=== PATIENT | male | born 1995 | race Caucasian/White ===

== ENCOUNTER 2023-11-06 00:50 | Emergency (ER) | payer BC, SELFPAY ==
[2023-11-06 00:57] VITALS: BP 132/91; BMI 23.6
[2023-11-06] MEDS: ATIVAN 2 MG IM (01:01)
[2023-11-06] MEDS: HALDOL 5 MG IM (01:01)
[2023-11-06 01:33] LABS: % Basophils 0.3 % (0-2); % Eosinophils 0.1 % (0-6); % Immature Granulocytes 0.4 % (0-0.5); % Monocytes 9.3 % (1.7-9.3); % Neutrophils 68.9 % (42.2-75.2); Absolute Immature Granulocytes 0.1 10^3/uL (0-0.05); Absolute Lymphocytes 2.9 10^3/uL (1.2-3.4); Absolute Monocytes 1.3 10^3/uL (0.1-0.6); Absolute Neutrophils 9.6 10^3/uL (1.4-6.5); Hematocrit 40.2 % (39.0-52.0); Hemoglobin 14.6 g/dL (13.0-18.0); Mean Corp Hgb Conc. 36.3 g/dL (33.0-37.0); Mean Corpuscular Hgb 31.5 pg (27.0-31.0); Mean Corpuscular Volume 86.8 fL (80.0-94.0); Mean Platelet Volume 9.1 fL (7.4-10.4); Nucleated Red Blood Cells % 0 % (-); Platelet Count 319 10^3/uL (130-400); Red Blood Cell Count 4.63 10^6/uL (4.70-6.10); Red Cell Dist. Width 11.9 % (11.5-14.5); White Blood Cell Count 13.9 10^3/uL (4.8-10.8)
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
[2023-11-06 02:08] LABS: Marijuana Positive (Negative)
[2023-11-06 02:09] LABS: Amphetamines Negative (Negative); Barbiturates Negative (Negative); Benzodiazepines Negative (Negative); Buprenorphine Negative (Negative); Cocaine Negative (Negative); Methadone Negative (Negative); Methamphetamines Negative (Negative); Opiates Negative (Negative); Phencyclidine Negative (Negative); Tricyclic Antidepressants Negative (Negative)
[2023-11-06 02:10] LABS: ALT (SGPT) 23 U/L (0-50); AST (SGOT) 44 U/L (17-59); Albumin 5.2 g/dl (3.5-5.0); Alcohol 176 mg/dl; Alkaline Phosphatase 66 U/L (38-126); Blood Urea Nitrogen 10 mg/dl (9-20); Carbon Dioxide 14 mmol/L (22-30); Chloride 103 mmol/L (98-107); Estimated Creatinine Clearance > 125 ml/min; Glucose 136 mg/dl (70-99); Potassium 3.4 mmol/L (3.5-5.1); Sodium 140 mmol/L (135-145); Total Bilirubin 0.5 mg/dl (0.2-1.3); Total Protein 8.4 g/dl (6.3-8.2); eGFR > 60.00
--- NOTE | 2023-11-06 03:44 | ED.GENMED ---
History of Present Illness
General
Chief Complaint: Crisis Evaluation
Source: patient, ambulance crew and police
Exam Limitations: none
Time Seen by Provider: 11/06/23 00:56
Nursing documentation reviewed up to this point in time: agreed with
Travel History
Have you had any contact with someone who has COVID-19?: No
Do you have any symptoms of coronavirus? Fever > 100 degrees, chills, cough, shortness of breath, sore throat, loss of taste or smell, muscle aches, or headache?: No
History of Present Illness
History of Present Illness:
This is a 28-year-old male who has longstanding history of depression maintained on Lexapro 10 mg daily which had been increased to 15 mg daily approximately 6 months ago.
He admits to longstanding history of suicidal thoughts, near daily thoughts of suicide. He admits to contemplating hanging himself, cutting his wrist or his neck, obtaining a gun from a neighbor and shooting himself. He has never followed through
with any attempt stating 'I am a chicken'
He states he has an extensive family history of depression and family history of self injury. His sister was a self cutter when they were younger.
He also notes longstanding history of intermittent explosive episodes where he becomes enraged with anger and agitation. These explosive episodes are much worse when he drinks alcohol which is a very rare occurrence.
Tonight while attending a wedding he admits to being nervous as he had to give a speech and drank a couple cocktails prior to his speech and then several more cocktails after completion of a successful speech. He then became quite agitated, enraged
causing wetting overs to call 911 and upon EMS arrival patient was combative with EMS staff and then combative with commander police reserves.
He is brought to the ED in handcuffs and remains intermittently explosive and enraged requiring 4 point leather restraints for patient and staff safety.
Police have filed a 302 petition.
Other than Lexapro patient takes no other medicines on a daily basis. He does admit to daily marijuana use but denies other drug use.
He believes he has an endocrine/cortisol/testosterone disorder as cause for these explosive episodes.
Past History
Past History
ED Past Medical History: Psychiatric
ED Past Surgical History: None
Social History
Tobacco: Non-smoker
Alcohol: Occasional
Drug: Marijuana
Personal:
Living: with family
Employment: Employed
Family History
Family History: Other (Depression)
Phy Exam
Physical Exam
Physical Exam:
GENERAL: 28-year-old gentleman appears his stated age, he is awake and alert, quite agitated and anxious, screaming and attempting to pull out of restraints. With verbal reassurance he is able to be calmed and eventually cooperative and answering
questions appropriately.
EYE: pupils equal and reactive. anicteric
NECK: Supple, nontender, no meningismus, no significant adenopathy.
ENT: oral mucosa is moist. No rhinorrhea.
CARDIAC: Regular rate and rhythm. no murmur.
LUNGS: No acute respiratory distress. Lungs are clear to auscultation.
ABDOMEN: Soft, nondistended, without focal tenderness
NEUROLOGICAL: Alert and oriented x3, no focal neuro deficits.
SKIN: Warm and dry, normal color, skin intact. No rash.
MUSCULOSKELETAL: No C/C/E. peripheral pulses are full and equal b/l. No palpable tenderness.
PSYCH: Angry, agitated
Course
Orders/Labs/Results
Orders:
Orders
11/06/23 00:57
Haloperidol Lactate [Haldol] 5 mg IM NOW STA
Lorazepam [Ativan] 2 mg IM NOW STA
11/06/23 00:58
Bedside Glucose- Treatment ONCE
one to one [ED Special Safety Observation] ONCE
Observation level: One to One
Restraints - Violent As Directed
Restraint Type-: Locked-4 point/4 rails
Apply From (date): 11/06/23
Apply from (time): 00:58
Remove (date): 11/06/23
Remove (time): 04:58
11/06/23 00:59
Crisis Consult Urgent
Reason for Consult: suicidal thoughts x several weeks; escalated tonight; intoxicated
11/06/23 01:01
Alcohol Urgent
Complete Blood Count/With Diff Urgent
Comprehensive Metabolic Panel Urgent
11/06/23 01:50
Urine Drug Abuse Screen Urgent
Date Specimen was Collected: 11/06/23
Time Specimen was Collected: 01:49
11/06/23 05:57
Basic Metabolic Panel Urgent
Abnormal Lab Results
11/06/23 11/06/23
01:01 01:50
WBC 13.9 H 10^3/uL
(4.8-10.8)
RBC 4.63 L 10^6/uL
(4.70-6.10)
MCH 31.5 H pg
(27.0-31.0)
Abs Immat Gran (auto) 0.1 H 10^3/uL
(0-0.05)
Absolute Neuts (auto) 9.6 H 10^3/uL
(1.4-6.5)
Absolute Monos (auto) 1.3 H 10^3/uL
(0.1-0.6)
Potassium 3.4 L mmol/L
(3.5-5.1)
Carbon Dioxide 14 L* mmol/L
(22-30)
Glucose 136 H mg/dl
(70-99)
Total Protein 8.4 H g/dl
(6.3-8.2)
Albumin 5.2 H g/dl
(3.5-5.0)
U Marijuana (THC) Screen Positive H
(Negative)
11/06/23 01:01
Vital Signs
Initial and Last Documented VS:
Initial Vital Signs
Pulse Resp BP Pulse Ox
116 22 132/91 97
11/06/23 00:57 11/06/23 00:57 11/06/23 00:57 11/06/23 00:57
Last Documented Vital Signs
Pulse Resp BP Pulse Ox
116 22 132/91 97
11/06/23 00:57 11/06/23 00:57 11/06/23 00:57 11/06/23 00:57
MDM/Problems Addressed
Differential Diagnosis Includes:
Patient presents via EMS quite angry, agitated, thrashing about requiring 4 point leather restraints as well as an IM dose of Haldol and Ativan.
He admits to similar explosive episodes occurring sporadically but more frequent over the past month or 2.
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
He also admits to longstanding history of depression, near daily thoughts of suicide but no previous suicide attempts.
He is quite angry and initially refusing to speak to myself and nursing staff but with gentle persistence, he is quite forthcoming with history as above.
I have explained that the restraints will stay in place until he is calm and cooperative and then our plan is to slowly remove restraints wanted to time with goal for him to be restraint free and remained cooperative.
Police have filed a 302 petition.
Awaiting telepsych evaluation.
Routine labs are pending.
Chronic conditions affecting care: Psychiatric illness
*Pulse Oximetry
Patient hypoxic: no
*Critical Care Note
Total Time (30-74mins, 75-104mins- exclusive of procedures): 30
comment:
Critical care statement: A total of 30 minutes of critical care time was provided for this patient. This includes management of unstable vital signs, evaluation of the patient at bedside, reviewing the patient's pertinent medical records, discussion
with consultants, review of old EKGs and review of pertinent medical records. This time with separate from time utilized to perform the aforementioned documented procedures
Update Note
Update Note:
11/06/2023 04:00 AM
Patient refusing to speak to telepsychiatrist.
302 temporarily upheld by myself pending repeat evaluation with telepsychiatrist versus evaluation by our psychiatrist this a.m.
Labs show moderate metabolic acidosis with CO2 of 14 likely related to alcohol intoxication along with significant physical exertion tonight.
Patient being orally hydrated with water and will plan to recheck BMP this morning.
EtOH 176 consistent with alcohol consumption tonight.
UDS positive only for marijuana consistent with patient's history.
Patient remains somewhat unpredictable, occasional outbursts and attempting to get up out of restraints.
Due to this unpredictability he remains in 4-point restraints and remains one-to-one observation.
ED Attending Note
-
Portions of this chart may have been created with voice recognition software.� Occasional wrong word or��sound alike� substitutions may have occurred due to the inherent limitations of voice recognition software.
Discharge Plan
Departure
Patient Disposition: Psych Facility
Date of Disposition: 11/06/23
Time of Disposition: 06:16
Condition: Fair
Discharge Problem:
Intermittent explosive disorder in adult, Depression with suicidal ideation, Alcohol intoxication, Involuntary commitment
Interventions
Interventions:
*Risk Screen - Suicide Last Done: 11/06/23 01:16
*General Assessment Last Done: 11/06/23 01:15
*Neglect/Abuse Screening Last Done: 11/06/23 01:16
ED-Psychological Assessment Last Done: 11/06/23 01:09
[2023-11-06 07:46] LABS: Blood Urea Nitrogen 8 mg/dl (9-20); Calcium 9.2 mg/dl (8.4-10.2); Carbon Dioxide 23 mmol/L (22-30); Chloride 105 mmol/L (98-107); Estimated Creatinine Clearance > 125 ml/min; Glucose 105 mg/dl (70-99); Potassium 3.7 mmol/L (3.5-5.1); Sodium 139 mmol/L (135-145); eGFR > 60.00
--- NOTE | 2023-11-06 10:06 | EDRN ---
RN in room to check on pt. Pt was given breakfast tray by security officers and guards. security officers and guards unlocked and removed Right wrist restraint to eat. RN was not notified. Charge nurse and Fill Technician notified. Pt is calm and laying on his left side.
Pt's spouse at bedside. Pt remains out of Right wrist restraint and this time. Psych eval is scheduled for this morning. Will continue to monitor.
[2023-11-06 13:00] VITALS: BP 143/81
--- NOTE | 2023-11-06 13:05 | ED.CRISIS ---
ED Crisis Note
ED Crisis Note
Subjective:
PT feeling more controlled and relaxed. He did meet with telepsych who upheld the 302. This was explained to the patient. He does request further medication to help him remain calm because the small room is 'stressing him'
Objective:
Restrained (3 points). Right arm freed for lunch.
Good eye contact
Calm
Labs reviewed.......repeat chemistries show resolution of low bicarb/low k.
We will give a dose of Saphris and then remove restraints in a step-spears fashion.
Crisis will work on placement.
[2023-11-06] MEDS: SAPHRIS 10 MG SL (13:12)
[2023-11-06] MEDS: ATIVAN 2 MG PO (16:16)
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
== END 2023-11-06 20:36 ==
LOC: EMR 00:50
PROVIDERS: CONSULT PHYSICIAN Psychiatry & Neurology Psychiatry; EMERGENCY PHYSICIAN Emergency Medicine
DX: R45.851 Suicidal ideations (principal); F63.81 Intermittent explosive disorder; F32.A Depression, unspecified; F10.129 Alcohol abuse with intoxication, unspecified; E87.20 Acidosis, unspecified
CPT/HCPCS: 99291; 96372 ×2; 80048; 80053; 80306; 82077; 85025